=== PATIENT | male | born 1980 | race Two or more races ===

== ENCOUNTER 2021-10-02 20:15 | Emergency (ER) | payer OTHER ==
[~2021-10-02] VITALS: Ht 190.5 cm; Wt 77.1 kg
[~2021-10-02 20:15] MED LIST: CYCLOBENZAPRINE10 MG PO; NORFLEX100MG PO
[2021-10-02] MEDS ORDERED: CEFADROXIL1 GM PO (22:05)
== END 2021-10-03 00:59 | disposition home or self-care (01) ==
LOC: ER 20:15
DX: L98.9 Disorder of the skin and subcutaneous tissue, unspecified (principal); L27.0 Generalized skin eruption due to drugs and medicaments taken internally; W57.XXXA Bitten or stung by nonvenomous insect and other nonvenomous arthropods, initial encounter; F19.188 Other psychoactive substance abuse with other psychoactive substance-induced disorder; Y92.89 Other specified places as the place of occurrence of the external cause